=== PATIENT | male | born 1930 | race African-American/Black ===

== ENCOUNTER 2017-09-29 11:51 | Emergency (ER) | payer MEDICARE, OTHER ==
[~2017-09-29] VITALS: Ht 182.9 cm; Wt 83.0 kg
[2017-09-29] MEDS ORDERED: ASPIRIN 81MG TABLET PO ONE (12:15)
[2017-09-29 12:19] LABS: BASOPHILS % 0.3 % (0.0-2.0); HEMATOCRIT. 34.4 % (42.0-52.0); HEMOGLOBIN. 11.6 g/dL (14.0-18.0); MEAN CORPUSCULAR HEMOGLOBIN 30.5 pg (28.0-32.0); MEAN CORPUSCULAR VOLUME 90.3 fL (80.0-94.0); MEAN PLATELET VOLUME 8.6 fl (7.4-10.4); MONOCYTES % 10.6 % (2.0-8.0); NEUTROPHILS % 53.1 % (40.0-76.0); PLATELET 140 x1000/uL (130-400); RED BLOOD CELL COUNT 3.81 mill/uL (4.7-6.1)
[2017-09-29 12:24] LABS: INR 1.1; PROTHROMBIN TIME 11.2 sec (9.4-11.6)
[2017-09-29 12:33] LABS: CHLORIDE 105 mEq/L (98-107)
[2017-09-29 17:41] VITALS: BP 139/66
== END 2017-09-29 17:52 | disposition short-term general hospital (02) ==
LOC: ER 11:58
DX: I20.0 Unstable angina (principal); I10 Essential (primary) hypertension; Z79.82 Long term (current) use of aspirin
CPT/HCPCS: 36415; 71045; 83880; 84484; 93005; 99285